=== PATIENT | male | born 1985 | race Caucasian/White ===

== ENCOUNTER 2018-05-18 18:38 | Emergency (ER) | payer OTHER ==
[2018-05-18] MEDS: KETOROLAC 60 MG INJ IM (19:44)
[2018-05-18] MEDS: morphine 4 MG/ML VIAL IM (20:30)
== END 2018-05-18 21:29 | disposition home or self-care (01) ==
LOC: FTE 18:38
DX: M25.562 Pain in left knee (principal)
CPT/HCPCS: 29505; 73560; 96372; 99284-25